=== PATIENT | female | born 1995 | race Caucasian/White ===

== ENCOUNTER → 2021-11-04 11:50 | Outpatient (CLI) | payer BC, SELFPAY ==
[2021-11-04 12:24] LABS: COVID19 -Nasal RAPID Negative (Negative)
== END ==
PROVIDERS: PCP Specialist; Visit Provider Specialist
DX: Z01.812 Encounter for preprocedural laboratory examination (principal); Z20.822 Contact with and (suspected) exposure to COVID-19
CPT/HCPCS: 87635

== ENCOUNTER 2021-11-05 09:00 | Day surgery (SDC) | payer BC, SELFPAY ==
[2021-11-03 10:36] VITALS: BMI 27.8
[2021-11-05] VITALS (11 sets, daily range): BP systolic 88–112; BP diastolic 47–72; PULSE 52–97; RESP 11–21; TEMP 36.3–36.9; O2SAT 96–100; BMI 27.8
[2021-11-05] MEDS: LACTATED RINGERS 1,000 ML 100 ML IV (09:15)
--- NOTE | 2021-11-05 09:17 | PM.PREOP ---
Pre-operative Note COVID-19 COVID-19 status: Negative Result date/Date tested (Pos, Neg/Pending): 11/04/21 Criteria for continued procedure: Continuing or worsening of significant or severe pain Interval Note History & Physical reviewed/Exam performed by Physician: Yes Changes to H&P: No
[2021-11-05] MEDS: BUPIVACAINE 0.5% (PF) 30 ML, EPINEPHrine 0.15 MG INJ (10:18)
--- NOTE | 2021-11-05 10:22 | SUR.OPER ---
Lithotomy on padded OR bed, head on pillow, arms secured on padded arm boards at <90 degrees abduction. Legs secured in padded yellow fins stirrups.
--- NOTE | 2021-11-05 10:46 | PM.OP.1 ---
Operative Date/Time/Diagnoses Date of procedure: 11/05/21 Time of procedure: 10:46 Pre-op diagnosis: Dysmenorrhea and placement of Mirena IUD Post-op diagnosis: same Procedure & Clinicians Procedure: Diagnostic laparoscopy with placement of Mirena IUD Same procedure as scheduled: Yes Indications: Patient with dysmenorrhea for diagnostic laparoscopy to determine if she has endometriosis and which for placement of Mirena IUD Surgeon: Yvonne Fernandez Click Yes if Unassisted: Yes Anesthesia Type: General Operative Notes Findings: Normal tubes, ovaries, uterus with no internal hernia is, no scar tissue, no endometriosis, normal appearing bowel surface, normal-appearing appendix, normal-appearing liver edge. Uterus sounded to 8 cm. Closure Type: primary Specimen(s): none sent Applied: implant(s) (Mirena IUD) Estimated Blood Loss (mL): 1 Blood products transfused: none Procedure in detail: Patient was brought to the operating room where she underwent general anesthesia. She was placed in low yellowfin stirrups and prepped and draped in usual sterile fashion. No antibiotics were indicated. Pulsatile stockings were in place and functional. Warming was with blankets. A single-tooth tenaculum was placed on the anterior lip of the cervix and the cervix dilated to #6 Hegar dilator. The Zumi uterine manipulator was placed and balloon inflated with 3 mL of air. The area of the incisions were injected with half percent Marcaine with epinephrine. An incision was made in the umbilicus with a scalpel and the Verres needle placed in the abdomen. Confirmation of correct placement of the needle was performed by withdrawing on the syringe and then allowing fluid to fall freely through the needle. The abdomen was insufflated to 3 L of CO2. A 5 mm trocar was placed under direct visualization. A 5 mm trochars were placed in the left lower quadrant under direct visualization after incising the skin. There did not appear to be any damage with placement of the trocars. The entire abdomen was examined and there were no abnormality seen. The CO2 was allowed to escape from the abdomen. The trochars were removed. Skin was closed with 4-0 Vicryll. The Zumi uterine manipulator was removed and the uterus sounded. Mirena IUD was placed into the uterus at the appropriate depth. The strings were cut to 4 cm. The patient went to recovery room in good condition. Complications: none Post-operative Condition: stable Disposition: same day surgery Plan for aftercare: Home when awake and stable
[2021-11-05] MEDS: HYDROMORPHONE 2 MG INJ 0.5 MG IV (10:54)
[2021-11-05] MEDS: ONDANSETRON 4 MG/2 ML INJ IV (10:54)
--- NOTE | 2021-11-05 11:16 | SUR.OPER ---
Terrence IUD Lot # [id number] Expiration Date: 10/14
[2021-11-05] MEDS: OXYCODONE/ACETAMINOPHEN 5/325 TABLET 1 TAB PO (11:22)
== END 2021-11-05 11:58 | disposition home or self-care (01) ==
PROVIDERS: PCP Specialist; Referring Provider Specialist; Visit Provider Specialist
PROC: (CPT 49320; principal; 2021-11-05 09:45)
PROC: (CPT 49320; 2021-11-05 09:45)
DX: N94.6 Dysmenorrhea, unspecified (principal); Z30.430 Encounter for insertion of intrauterine contraceptive device
CPT/HCPCS: 49320; 58300; 81025; J0171; J1170; J1885; J2405; J2704; J3010; J7298